=== PATIENT | male | born 1950 | race Caucasian/White ===

== ENCOUNTER 2022-02-15 20:04 | Emergency (ER) | payer MEDICARE, OTHER ==
[2022-02-15] MEDS ORDERED: Lidocaine 1% 5 ML VIAL INJECT ONE (20:09)
[2022-02-15] MEDS ORDERED: Diphtheria,Pertussis(Acell),Tetanus Vaccine 0.5 ML Syringe IM ONE (20:21)
== END 2022-02-15 20:41 | disposition home or self-care (01) ==
LOC: VM.ED 20:04
DX: S61.012A Laceration without foreign body of left thumb without damage to nail, initial encounter (principal); E78.00 Pure hypercholesterolemia, unspecified; I10 Essential (primary) hypertension; E11.9 Type 2 diabetes mellitus without complications; Z23 Encounter for immunization; W26.0XXA Contact with knife, initial encounter
CPT/HCPCS: 12001; 90471; 90715; 99282-25; 99283